=== PATIENT | male | born 1930 | race Caucasian/White ===

== ENCOUNTER 2016-03-11 11:50 | Day surgery (SDC) | payer OTHER, BC ==
[~2016-03-11] VITALS: Ht 165.1 cm; Wt 63.5 kg
[~2016-03-11 11:50] MED LIST: ALLOPURINOL100 MG PO; AMLODIPINE BESYL5 MG PO; ASPIR-LOW81 MG PO; AVODART0.5 MG PO; CO Q-10100 MG PO; COZAAR100 MG PO; ELIQUIS2.5 MG PO; ELIQUIS5 MG PO; FLOMAX0.4 MG PO; JANUVIA25 M1 PO; LO-DOSE ASPIRIN81 M2 PO; LOPERAMIDE2 MG PO; LOSARTAN POTASS50 MG PO; METOPROLOL SUCC50 MG PO; NIASPAN,SLO-NI500 MG PO; NORVASC2.5 MG PO; OMEGA 3 1,0001 EACH PO; PRAVACHOL20 MG PO; PRAVACHOL40 MG PO; VITAMIN D250000 UNIT PO; VITAMIN D32000 UNIT PO
[2016-03-11 13:19] LABS: POINT-OF-CARE METER ID UU13113696
== END 2016-03-11 15:30 | disposition home or self-care (01) ==
LOC: CATH 11:50
PROVIDERS: Internal Medicine Cardiovascular Disease
DX: Z45.010 Encounter for checking and testing of cardiac pacemaker pulse generator [battery] (principal); I49.5 Sick sinus syndrome; I48.92 Unspecified atrial flutter; E11.9 Type 2 diabetes mellitus without complications; Z85.46 Personal history of malignant neoplasm of prostate; E78.5 Hyperlipidemia, unspecified; I25.10 Atherosclerotic heart disease of native coronary artery without angina pectoris
CPT/HCPCS: 82948; C1785; J0690; J1200; J2250; J3010; S0020